=== PATIENT | female | born 1965 | race American Indian/Alaskan Native ===

== ENCOUNTER 2020-07-25 10:30 | Emergency (ER) | payer SELFPAY ==
--- NOTE | 2020-07-25 13:10 | Event Note ---
ED Screening Note ED Screening Note: upper abd pain that began a week ago vaginal bleeding for two months went to [place] yesterday and was discharged states she has been constipated for 7 days ago has not taken a laxative or done an enema no fever +n/v PMHx HTN has not taken her BP in a week no allergies to meds This initial assessment/diagnostic orders/clinical plan/treatment(s) is/are subject to change based on patients health status, clinical progression and re- assessment by fellow clinical providers in the ED. Further treatment and workup at subsequent clinical providers discretion. Patient/guardian urged not to elope from the ED as their condition may be serious if not clinically assessed and managed. Initial orders include: labs, CT, UA,
--- NOTE | 2020-07-25 14:28 | XRay Report ---
ABDOMEN 2 VIEW(S) INDICATION / CLINICAL INFORMATION: abd pain, n/v, constipation x7 days. COMPARISON: None available. FINDINGS: TUBES / LINES: None. BOWEL GAS PATTERN/EXTRALUMINAL GAS: No significant abnormality. No pneumatosis or secondary signs of free air. ADDITIONAL FINDINGS: No significant additional findings. IMPRESSION: 1. No significant abnormality. Signer Name: Leo Khan MD Signed: 07/25/2020 2:24 PM Workstation Name: [id number]
[2020-07-25 14:53] LABS: Basophils % (Auto) 0.2 % (0.0-1.8); Eosinophils % (Auto) 0.1 % (0.0-4.3); Hematocrit 33.7 % (30.3-42.9); Hemoglobin 11.6 gm/dl (10.1-14.3); Lymphocytes % (Auto) 8.7 % (13.4-35.0); Mean Corpuscular HGB Conc 35 % (30-34); Mean Corpuscular Volume 94 fl (79-97); Monocytes # (Auto) 0.7 K/mm3 (0.0-0.8); Monocytes % (Auto) 5.6 % (0.0-7.3); Platelet Count 235 K/mm3 (140-440); Red Blood Count 3.58 M/mm3 (3.65-5.03); Red Cell Distribution Width 16.3 % (13.2-15.2)
[2020-07-25 15:19] LABS: Alanine Aminotransferase 8 units/L (7-56); Albumin 3.8 g/dL (3.9-5); BUN/Creatinine Ratio 11; Blood Urea Nitrogen 9 mg/dL (7-17); Calcium 9.1 mg/dL (8.4-10.2); Hemolysis Index 37
[2020-07-25 17:23] VITALS: BP 175/101
[2020-07-25] MEDS ORDERED: ONDANSETRON 4 MG/2 ML INJ IV ONE (17:24)
[2020-07-25] MEDS ORDERED: HYDROmorphone 1 MG/1 ML INJ IV ONE (17:24)
[2020-07-25] MEDS ORDERED: SODIUM CHLORIDE 0.9% 1000 ML 1,000 ML IV ONE (17:24)
[2020-07-25] MEDS ORDERED: PANTOPRAZOLE 40 MG INJ IV ONE (17:25)
--- NOTE | 2020-07-25 17:39 | Emergency Department Report ---
ED Abdominal Pain HPI - General Chief Complaint: Abdominal Pain Stated Complaint: ABD/7DAYS CONSTIPATION PUI?: No Time Seen by Provider: 07/25/20 13:07 Source: patient Mode of arrival: Wheelchair Limitations: No Limitations - History of Present Illness Initial Comments: Chief complaint: "I lost my pancreas." HPI: This is a 55-year-old female with history of hypertension, asthma, alcoholic pancreatitis who presents with dull central abdominal pain for 7 days. After several years of abstaining from alcohol, she admitted to drinking for the past several days. She is drinking copious amount of alcohol. She was evaluated outside hospital yesterday treated with IV fluid and pain medication. She was diagnosed with pancreatitis. Patient has persistent pain. She also has constipation for the past several days. She has had vaginal bleeding for the past 2 months. MD Complaint: abdominal pain -: Gradual, days(s) (4) Location: diffuse Radiation: none Migration to: no migration Severity scale (0 -10): 10 Quality: aching, dull Consistency: constant Improves With: nothing Worsens With: nothing Associated Symptoms: constipation, other (Vaginal bleeding) - Related Data Previous Rx's Medication Instructions Recorded Last Taken Type HYDROcodone/APAP 5-325 [[place] 1 each PO Q6HR PRN #10 tablet 07/25/20 Unknown Rx 5/325] Promethazine [Phenergan] 25 mg PO Q6HR PRN #10 tab 07/25/20 Unknown Rx Allergies Allergy/AdvReac Type Severity Reaction Status Date / Time No Known Allergies Allergy Unverified 07/25/20 12:19 ED Review of Systems ROS: Stated complaint: ABD/7DAYS CONSTIPATION Other details as noted in HPI Comment: All other systems reviewed and negative Constitutional: denies: fever, malaise Respiratory: denies: cough, shortness of breath Gastrointestinal: abdominal pain, constipation Genitourinary: abnormal menses ED Past Medical Hx - Past Medical History Previous Medical History?: Yes Hx Hypertension: Yes Hx Asthma: Yes Additional medical history: Pancreatitis - Social History Smoking Status: Never Smoker Substance Use Type: None - Medications Home Medications: Home Medications Medication Instructions Recorded Confirmed Last Taken Type HYDROcodone/APAP 5-325 [[place] 1 each PO Q6HR PRN #10 tablet 07/25/20 Unknown Rx 5/325] Promethazine [Phenergan] 25 mg PO Q6HR PRN #10 tab 07/25/20 Unknown Rx ED Physical Exam - General Limitations: No Limitations General appearance: alert, in no apparent distress, other (Appears well, nontoxic, appears comfortable) - Head Head exam: Present: atraumatic, normocephalic - Eye Eye exam: Present: normal appearance - ENT ENT exam: Present: mucous membranes moist - Neck Neck exam: Present: normal inspection, full ROM - Respiratory Respiratory exam: Present: normal lung sounds bilaterally. Absent: respiratory distress, wheezes, rales, rhonchi - Cardiovascular Cardiovascular Exam: Present: regular rate, normal rhythm, normal heart sounds. Absent: systolic murmur, diastolic murmur, rubs, gallop - GI/Abdominal GI/Abdominal exam: Present: soft, normal bowel sounds. Absent: distended, tenderness, guarding, rebound - Extremities Exam Extremities exam: Present: normal inspection - Back Exam Back exam: Present: normal inspection - Neurological Exam Neurological exam: Present: alert, oriented X3 - Psychiatric Psychiatric exam: Present: normal affect, normal mood - Skin Skin exam: Present: warm, dry, intact, normal color. Absent: rash ED Course Vital Signs 07/25/20 07/25/20 12:26 17:19 Temperature 98.2 F Pulse Rate 78 67 Respiratory 20 18 Rate Blood Pressure 208/113 175/101 [Right] O2 Sat by Pulse 97 97 Oximetry ED Medical Decision Making - Lab Data Result diagrams: 07/25/20 14:40 07/25/20 14:40 Laboratory Results - last 24 hr 07/25/20 07/25/20 07/25/20 14:40 14:40 14:40 WBC 11.8 H RBC 3.58 L Hgb 11.6 Hct 33.7 MCV 94 MCH 33 H MCHC 35 H RDW 16.3 H Plt Count 235 Lymph % (Auto) 8.7 L Cook % (Auto) 5.6 Eos % (Auto) 0.1 Baso % (Auto) 0.2 Lymph # (Auto) 1.0 L Cook # (Auto) 0.7 Eos # (Auto) 0.0 Baso # (Auto) 0.0 Seg Neutrophils % 85.4 H Seg Neutrophils # 10.1 H Sodium 135 L Potassium 3.6 Chloride 100.9 Carbon Dioxide 25 Anion Gap 13 BUN 9 Creatinine 0.8 Estimated GFR > 60 BUN/Creatinine Ratio 11 Glucose 99 Calcium 9.1 Total Bilirubin 1.60 H AST 12 ALT 8 Alkaline Phosphatase 94 Total Protein 7.4 Albumin 3.8 L Albumin/Globulin Ratio 1.1 Lipase 95 H HCG, Qual Negative - Radiology Data Radiology results: report reviewed CT abdomen pelvis: Moderate acute pancreatitis, cholelithiasis, 5 cm ovarian cysts - Medical Decision Making 1. Abdominal pain: Recent diagnosis of acute pancreatitis. With equivocal lipase level I suspect that patient is improving. I With acute pancreatitis levels lipase expected to be at least 5 times normal value. Patient's current lipase value is clse to normal. CT abdomen pelvis confirmed "moderate acute pancreatitis" patient agreed to cease drinking alcohol 2. Constipation: Recommended diet changes and [id number] treatments. 3. abnormal menses, vaginal bleeding for the past 2 months: Differential diagnosis includes uterine fibroids, perimenopausal syndrome, malignancy. Patient understands the need for Pap smear and endometrial biopsy. She was referred to credit risk management director. 4. Hypertensive urgency due to medication noncompliance for the past week. No evidence of endorgan damage. Blood pressure improved during period of observation. 5. Cholelithiasis: Patient patient is well aware of this diagnosis. She understands to avoid high-fat diet Critical care attestation.: If time is entered above; I have spent that time in minutes in the direct care of this critically ill patient, excluding procedure time. ED Disposition Clinical Impression: Hypertensive urgency, Abnormal menses, Constipation, Acute abdominal pain, Acu te pancreatitis, Gallstones Disposition: - TO HOME OR SELFCARE Is pt being admited?: No Does the pt Need Aspirin: No Condition: Stable Instructions: Abdominal Pain (ED), Acute Pancreatitis, [id number], Gallbladder Eating Plan Prescriptions: HYDROcodone/APAP 5-325 [[place] 5/325] 1 each PO Q6HR PRN #10 tablet PRN Reason: Pain Promethazine [Phenergan] 25 mg PO Q6HR PRN #10 tab PRN Reason: Nausea Referrals: WILLIAM DAN MD [Staff Physician] - 3-5 Days Forms: Work/School Release Form(ED)
[2020-07-25] MEDS ORDERED: HYDROmorphone 1 MG/1 ML INJ IM ONE (17:41)
[2020-07-25] MEDS ORDERED: ONDANSETRON 4 MG ODT TAB PO ONE ×3 (17:41→19:19)
[2020-07-25 17:46] LABS: Bilirubin,Urine NEG (Negative); Blood,Urine LG (Negative); Color,Urine Yellow (Yellow); Mucus,Urine 2+ /HPF; Urobilinogen,Urine < 2.0 mg/dL (<2.0)
[2020-07-25 17:50] LABS: RBC,Urine > 182.0 /HPF (0.0-6.0)
--- NOTE | 2020-07-25 18:16 | Cat Scan Report ---
CT ABDOMEN AND PELVIS WITHOUT CONTRAST INDICATION: MAIN. TECHNIQUE: Axial CT images were obtained through the abdomen and pelvis without IV contrast. All CT scans at [facility] location are performed using CT dose reduction for ALARA by means of automated exposure control. COMPARISON: None available. FINDINGS: LOWER CHEST: No significant abnormality. LIVER: Moderate decreased attenuation characteristic for steatosis. GALLBLADDER: Several calcified gallstones. BILE DUCTS: No significant abnormality. PANCREAS: Moderate peripancreatic inflammation characteristic for patient's known acute pancreatitis. No peripancreatic fluid collection SPLEEN: No significant abnormality. ADRENALS: No significant abnormality. RIGHT KIDNEY and URETER: No significant abnormality. LEFT KIDNEY and URETER: No significant abnormality. STOMACH and SMALL BOWEL: No significant abnormality. COLON: Moderate colonic diverticulosis without diverticulitis APPENDIX: No significant abnormality. PERITONEUM: No free fluid. No free air. No fluid collection. LYMPH NODES: No significant adenopathy. AORTA and ARTERIES: No significant abnormality. IVC and VEINS: No significant abnormality. URINARY BLADDER: No significant abnormality. REPRODUCTIVE ORGANS: 5.3 cm left ovarian cyst image 67. 3.2 cm right ovarian cyst. ADDITIONAL FINDINGS: None. SKELETAL SYSTEM: No significant abnormality. IMPRESSION: 1. Moderate acute pancreatitis on this noncontrast study 2. Cholelithiasis 3. Moderate colonic diverticulosis 4. Bilateral ovarian cyst measuring up to 5 cm on the left. Recommend follow-up pelvic ultrasound 1 y ear. See below guidelines Postmenopausal women * Cysts >1 and 7 cm: Should be described in the imaging report with statement that they are almost certainly benign; yearly follow-up, at least initially, with US recommended. Some practices may opt t o increase the lower size threshold for follow-up from 1 cm to as high as 3 cm. One may opt to contin ue follow-up annually or to decrease the frequency of follow-up once stability or decrease in size lynn s been confirmed. Cysts in the larger end of this range should still generally be followed on a regul ar basis. Signer Name: Nate Avila MD Signed: 07/25/2020 6:11 PM Workstation Name: [id number]
[2020-07-25] MEDS ORDERED: oxyCODONE /ACETAMINOPHEN 5-325MG TAB PO ONE (19:18)
== END 2020-07-25 19:33 | disposition home or self-care (01) ==
LOC: ED 10:30
DX: N92.5 Other specified irregular menstruation (principal); K85.10 Biliary acute pancreatitis without necrosis or infection; K59.00 Constipation, unspecified
CPT/HCPCS: 36415; 74019; 74176; 80053; 81001; 83690; 84703; 85025; 96372; 99285; J1170; Q0162